=== PATIENT | female | born 1955 | race Caucasian/White ===

== ENCOUNTER 2016-09-29 10:46 | Day surgery (SDC) | payer OTHER ==
[2016-09-29] MEDS ORDERED: KETOROLAC TROMETHAMINE 30 MG/ML SOL ONE (11:42)
[2016-09-29 13:02] VITALS: BP 133/80; PULSE 70; RESP 20; TEMP 97.9; O2SAT 100
== END 2016-09-29 13:20 | disposition home or self-care (01) | DRG 392 ==
LOC: SURG 10:46
PROVIDERS: ATTEND Surgery
DX: K59.00 Constipation, unspecified (principal); D12.2 Benign neoplasm of ascending colon; R19.7 Diarrhea, unspecified; K57.30 Diverticulosis of large intestine without perforation or abscess without bleeding
CPT/HCPCS: 99001; J1885; J2001; J2704

== ENCOUNTER 2016-12-12 15:55 | Emergency (ER) | payer OTHER ==
[2016-12-12 16:28] VITALS: BP 143/90; PULSE 86; RESP 18; TEMP 98.2; O2SAT 99
[2016-12-12] MEDS: HYDROMORPHONE HCL 2 MG/ML 1 ML SOL IM ONE ×2 (16:43→16:45)
[2016-12-12] MEDS ORDERED: HYDROMORPHONE HCL 2 MG/ML 1 ML SOL ONE (16:44)
== END 2016-12-12 17:15 | disposition home or self-care (01) | DRG 552 ==
LOC: ED 15:55
DX: M54.5 Low back pain (principal); W18.30XA Fall on same level, unspecified, initial encounter
CPT/HCPCS: 99282; J1170

== ENCOUNTER 2018-10-15 11:49 | Emergency (ER) | payer SELFPAY ==
[2018-10-15 11:49] VITALS: O2SAT 99
[2018-10-15 12:09] VITALS: BP 169/83; PULSE 84; RESP 16; TEMP 97.3
[2018-10-15] MEDS ORDERED: SODIUM CHLORIDE 0.9% 1000ML 1,000 ML IV ONE (12:36)
[2018-10-15] MEDS ORDERED: LORAZEPAM 2 MG/ML SOL IV ONE (12:36)
[2018-10-15] MEDS ORDERED: ONDANSETRON HCL 4 MG/2 ML SOL IV ONE (12:37)
[2018-10-15 12:44] LABS: BASOPHILS % (AUTO) 1 % (0-3); EOSINOPHILS % (AUTO) 6 % (0-9); HEMATOCRIT 41 % (35-47); HEMOGLOBIN 13.3 gm/dl (12.0-15.5); LYMPHOCYTES % (AUTO) 35.8 % (10-50); MEAN CORPUSCULAR HEMOGLOBIN 31.1 pg (27.0-32.0); MEAN CORPUSCULAR HGB CONC 32.7 gm/dl (32.0-36.0); MEAN CORPUSCULAR VOLUME 95 fL (81-99); MONOCYTES % (AUTO) 7.9 % (0-12); NEUTROPHILS % (AUTO) 49.5 % (37-80)
[2018-10-15] MEDS ORDERED: LORAZEPAM 2 MG/ML SOL ONE (12:46)
[2018-10-15] MEDS ORDERED: ONDANSETRON HCL 4 MG/2 ML SOL ONE (12:48)
[2018-10-15 13:17] LABS: ALBUMIN 3.7 gm/dl (3.4-5.0); ALKALINE PHOSPHATASE 163 IU/L (46-116); ALT 245 IU/L (14-63); AST 63 IU/L (15-37); BILIRUBIN,TOTAL 0.4 mg/dl (0.2-1.0); BLOOD UREA NITROGEN 22 mg/dl (7-18); CALCIUM 8.8 mg/dl (8.5-10.1); CARBON DIOXIDE 26.4 mEq/L (21-32); CHLORIDE 104 mMol/L (98-107); CREATININE 1.12 mg/dl (0.60-1.00); GLUCOSE 116 mg/dl (74-106); POTASSIUM 4.4 mMol/L (3.5-5.1); SALICYLATE 3.3 mg/dl (2.8-30.0); SODIUM 140 mMol/L (136-145); THYROID STIMULATING HORMONE 2.119 uIU/ml (0.358-3.740); TOTAL PROTEIN 7.5 gm/dl (6.4-8.2)
[2018-10-15 13:18] LABS: ACETAMINOPHEN < 2 ug/ml (10-30); ALCOHOL < 0.003 gm/dl (0.000-0.08)
[2018-10-15 14:01] LABS: APPEARANCE,URINE Clear; BILIRUBIN,URINE NEGATIVE (NEGATIVE); COLOR,URINE Yellow; GLUCOSE, URINE (UA) NEGATIVE (NEGATIVE); KETONES,URINE NEGATIVE (NEGATIVE); LEUKOCYTE ESTERASE ,URINE 1+ (NEGATIVE); NITRATE,URINE NEGATIVE (NEGATIVE); OCCULT BLOOD,URINE NEGATIVE (NEG-TRACE); UROBILINOGEN,URINE 0.2 (0.2-1.0 EU)
[2018-10-15 14:07] LABS: AMPHETAMINES NEGATIVE (NEGATIVE); BACTERIA 1+ (< 1+); BARBITUATES NEGATIVE (NEGATIVE); BENZODIAZEPINES NEGATIVE (NEGATIVE); CANNABINOL(THC) NEGATIVE (NEGATIVE); COCAINE(COC) NEGATIVE (NEGATIVE); CRYSTALS NEGATIVE (0-3 AVE/HPF); METHADONE NEGATIVE (NEGATIVE); METHAMPHETAMINES NEGATIVE (NEGATIVE); OPIATES(OPI) NEGATIVE (NEGATIVE); OXYCODONE(OXY) NEGATIVE (NEGATIVE); PROPOXYPHENE(PPX) NEGATIVE (NEGATIVE); RBC,URINE 0-2 (0-3AV/HPF); TRICYCLIC ANTIDEPRESSANTS NEGATIVE (NEGATIVE); WBC,URINE 0-2 (0-5AV/HPF)
== END 2018-10-15 14:48 | disposition home or self-care (01) | DRG 392 ==
LOC: ED 11:49
DX: R11.2 Nausea with vomiting, unspecified (principal); R19.7 Diarrhea, unspecified; F41.9 Anxiety disorder, unspecified; E86.0 Dehydration; E03.9 Hypothyroidism, unspecified
CPT/HCPCS: 80053; 80305; 80307; 81001; 84443; 85025; 87088; 96365; 96374; 96375; 99283; 99284; J2060; J2405